=== PATIENT | male | born 1955 | race Caucasian/White ===

== ENCOUNTER 2022-07-29 02:20 | Emergency (ER) | payer OTHER, MEDICAID ==
[~2022-07-29] VITALS: Ht 177.8 cm; Wt 99.8 kg
[2022-07-29 02:20] VITALS: BP 112/70
--- NOTE | 2022-07-29 02:21 | NUR ---
Patient placed on bed 9.
--- NOTE | 2022-07-29 02:34 | NUR ---
Dr. Fleming examining patient.
--- NOTE | 2022-07-29 02:39 | NUR ---
LAB AT BEDSIDE
--- NOTE | 2022-07-29 02:45 | NUR ---
received pt from EMS and placed to bed 09. pt currently a/o x 4 gcs 15. pt is a 66 year old male biba from [facility] for cc of CP and SOB x 2 days. pt was seen in [place] earlier today and was medically cleared from there. currently on RA satting at 97%. normotensive and NAD at this time.
--- NOTE | 2022-07-29 02:47 | NUR ---
X-Ray at bedside.
[2022-07-29 02:50] LABS: BASOPHILS % (AUTO) 0.4 % (0.0-2.0); EOSINOPHILS # (AUTO) 0.4 K/uL (0-0.4); HEMATOCRIT 38.6 % (36-52); HEMOGLOBIN 13.1 g/dL (12.0-18.0); LYMPHOCYTES # (AUTO) 1.9 K/uL (2.0-11.5); MEAN CORPUSCULAR HEMOGLOBIN 32 pg (27-31); MEAN CORPUSCULAR HGB CONC 34 g/dL (33-37); MEAN CORPUSCULAR VOLUME 95.2 fL (80-94); MONOCYTES # (AUTO) 0.8 K/uL (0.8-1.0); MONOCYTES % (AUTO) 8.4 % (1.7-9.3); NEUTROPHILS # (AUTO) 6.9 K/uL (1.8-7.7); NEUTROPHILS % (AUTO) 68.2 % (42.2-75.2); PLATELET COUNT (AUTO) 410 K/uL (140-450); RED BLOOD CELL COUNT(AUTO) 4.05 MIL/uL (4.20-6.10); RED CELL DISTRIBUTION WIDTH 13.9 % (11.6-13.7)
[2022-07-29 03:11] LABS: ALBUMIN 3.2 g/dL (3.4-5.0); CARBON DIOXIDE 26.3 mmol/L (21-32); GFR ARICAN-AMERICAN 96 mL/min (>90); GLUCOSE 117 mg/dL (74-106); UREA NITROGEN, BLOOD 21 mg/dL (7-18)
[2022-07-29 03:25] LABS: ANION GAP 13.5 (8-16); ASPARTATE AMINOTRANSFERASE 22 U/L (15-37); CHLORIDE 105 mmol/L (98-107); POTASSIUM 3.8 mmol/L (3.5-5.1); SODIUM SERUM 141 mmol/L (136-145); TOTAL BILIRUBIN 0.2 mg/dL (0.0-1.0)
[2022-07-29] MEDS ORDERED: LIDOCAINE 5% 1 EA PATCH TP SCH (05:50)
[2022-07-29] MEDS ORDERED: KETOROLAC 15 MG/ML VIAL IVP ONE (05:50)
[2022-07-29] MEDS ORDERED: LID5T TP (06:43)
--- NOTE | 2022-07-29 06:55 | NUR ---
called [facility] [place] and gave report to Carolina CRAIN. she sts pt will be going to room 411A
--- NOTE | 2022-07-29 07:19 | NUR ---
received report from Dez CRAIN. pt calm and resting. pt aware of transport back to facility. vss
--- NOTE | 2022-07-29 08:00 | NUR ---
CHANGED DIAPER PER PT REQUEST. MULTIPLE BEDSORES NOTED TO [place] AREA
--- NOTE | 2022-07-29 08:51 | NUR ---
PENDING TRANSPORT ETA 1500.
--- NOTE | 2022-07-29 08:52 | NUR ---
PT CALM AND SLEEPING
--- NOTE | 2022-07-29 12:39 | NUR ---
Note kasandra in ED - 07/29/22 at 1240 by [id number] Patient will be admitted to care of DR CHESTER. Admited to TELE. Will go to [id number]. Belongings list completed. Report to BETY CRAIN.
[2022-07-29 15:22] VITALS: BP 130/83
--- NOTE | 2022-07-29 15:23 | NUR ---
PT CALM AND RESTING
--- NOTE | 2022-07-29 15:35 | NUR ---
[facility] UPDATED ETA [id number]
--- NOTE | 2022-07-29 15:50 | NUR ---
Patient discharged with v/s stable. Written and verbal after care instructions given and explained. Patient verbalized understanding. Ambulance Transport with to detention. All questions addressed prior to discharge. Advised to follow up with PMD.
== END 2022-07-29 15:50 | disposition home or self-care (01) ==
LOC: MED 02:20
DX: R07.89 Other chest pain (principal)
CPT/HCPCS: 36415; 71045; 80053; 84484; 85025; 93005; 96374; 99285; Q0092; J1885